=== PATIENT | male | born 1995 | race Caucasian/White ===

== ENCOUNTER 2019-07-13 11:28 | Emergency (ER) | payer OTHER ==
[~2019-07-13] VITALS: Ht 175.3 cm; Wt 68.0 kg
[2019-07-13 11:52] LABS: ABSOLUTE NEUTROPHILS 5.7 thou/uL (1.4-8.2); BASOPHILS 0.9 % (0.0-2.0); EOSINOPHILS 3.3 % (0.0-3.0); HEMATOCRIT 44.6 % (42.0-52.0); HEMOGLOBIN 15.8 gm/dL (14.0-18.0); LYMPHOCYTES 24.6 % (24.0-44.0); MCH 33.7 pg (26.0-34.0); MCHC 35.4 g/dL (28.0-37.0); MCV 95.3 fL (80.0-100.0); MONOCYTES 8.7 % (1.0-8.0); PLATELET COUNT 322 thou/uL (150-400); POLYS 62.5 % (36.0-66.0); RBC 4.67 mil/uL (4.50-6.00); RDW 14.5 % (10.5-14.5); WBC 9.1 thou/uL (4.0-11.0)
[2019-07-13 12:00] LABS: ANION GAP 14 mmol/L (7-16); BUN 14 mg/dL (7-18); CALCIUM 9.1 mg/dL (8.5-10.1); CHLORIDE 98 mmol/L (98-107); CO2 24 mmol/L (21-32); CREATININE 0.9 mg/dL (0.7-1.3); GLUCOSE 151 mg/dL (74-106); POTASSIUM 3.5 mmol/L (3.5-5.1); SODIUM 136 mmol/L (136-145)
[2019-07-13 12:04] LABS: SALICYLATE < 2.8 mg/dL (2.8-20.0)
[2019-07-13 12:04] LABS: URINE BILIRUBIN NEGATIVE (Negative); URINE BLOOD NEGATIVE (Negative); URINE CLARITY CLEAR; URINE COLOR YELLOW; URINE GLUCOSE-RANDOM* NEGATIVE (Negative); URINE KETONES NEGATIVE (Negative); URINE LEUKOCYTES-REFLEX NEGATIVE (Negative); URINE NITRITE-REFLEX NEGATIVE (Negative); URINE PROTEIN (DIPSTICK) TRACE (Negative); URINE SPECIFIC GRAVITY 1.025 (1.005-1.035); URINE UROBILINOGEN 0.2 E.U./dl (0.2-1.0)
[2019-07-13 12:11] LABS: AMP/METHAMP Negative (Negative); BARBITURATES Negative (Negative); BENZODIAZEPINES Negative (Negative); COCAINE Negative (Negative); METHADONE Negative (Negative); OPIATES Negative (Negative); PCP Negative (Negative)
[2019-07-13 15:10] VITALS: BP 125/82
[2019-07-14 19:07] LABS: SYPHILIS AB Negative (Negative)
== END 2019-07-13 15:10 | disposition home or self-care (01) ==
LOC: ER 11:28
PROVIDERS: Emergency Medicine
DX: R45.4 Irritability and anger (principal); F10.20 Alcohol dependence, uncomplicated; F17.210 Nicotine dependence, cigarettes, uncomplicated; Y90.4 Blood alcohol level of 80-99 mg/100 ml

== ENCOUNTER 2019-11-10 17:37 | Inpatient (IN) | payer OTHER ==
[~2019-11-10] VITALS: Ht 175.3 cm; Wt 65.3 kg
--- NOTE | ~2019-11-10 | EKG ---
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
[2019-11-10 17:40] VITALS: BP 130/72
[2019-11-10 18:30] LABS: ABSOLUTE NEUTROPHILS 15.9 thou/uL (1.4-8.2); BASOPHILS 0.1 % (0.0-2.0); HEMATOCRIT 45.7 % (42.0-52.0); HEMOGLOBIN 16.2 gm/dL (14.0-18.0); LYMPHOCYTES 5.8 % (24.0-44.0); MCH 32.7 pg (26.0-34.0); MCHC 35.4 g/dL (28.0-37.0); MCV 92.2 fL (80.0-100.0); MONOCYTES 7.8 % (1.0-8.0); PLATELET COUNT 171 thou/uL (150-400); POLYS 86.3 % (36.0-66.0); RBC 4.96 mil/uL (4.50-6.00); RDW 12.8 % (10.5-14.5); WBC 18.4 thou/uL (4.0-11.0)
[2019-11-10 18:47] LABS: ALBUMIN 4.4 g/dL (3.4-5.0); CALCIUM 9.5 mg/dL (8.5-10.1); CREATININE 1.3 mg/dL (0.7-1.3); TOTAL BILIRUBIN 1.1 mg/dL (<0.1-1.0)
[2019-11-10 18:49] LABS: SALICYLATE < 2.8 mg/dL (2.8-20.0); TROPONIN-I 0.34 ng/mL (<0.06)
[2019-11-10 18:50] LABS: POTASSIUM 2.6 mmol/L (3.5-5.1)
--- NOTE | 2019-11-10 20:15 | NUR ---
REPORT GIVEN TO SHY DAN AT 1900.
[2019-11-10 20:16] LABS: URINE CREATININE-RANDOM* 160.6 mg/dL
[2019-11-10 20:20] LABS: AMP/METHAMP Negative (Negative); BARBITURATES Negative (Negative); BENZODIAZEPINES Negative (Negative); COCAINE Negative (Negative); METHADONE Negative (Negative); OPIATES Negative (Negative); PCP Negative (Negative)
[2019-11-10 23:24] LABS: CALCIUM 8.6 mg/dL (8.5-10.1)
[2019-11-10 23:28] LABS: POTASSIUM 2.8 mmol/L (3.5-5.1)
[2019-11-10 23:30] VITALS: BP 125/72
[2019-11-10 23:45] VITALS: BP 122/70
[2019-11-11] VITALS (13 sets, daily range): BP systolic 102–160; BP diastolic 50–77
--- NOTE | 2019-11-11 03:32 | NUR ---
PT ARRIVED ON THE UNIT BEFORE MIDNIGHT, IN 4 POINT LEATHER RESTRAINTS, WITH SECURITY AND ER NURSE. ACUTELY CONFUSED, AND NOT RE-DIRECTABLE ALSO AGITATED AND RESTLESS, MAKING MULTIPLE ATTEMPTS TO GET OOB AND PULLING AT TELE MONITOR CORDS.OBTAINED ORDER FOR 3 POINT SOFT RESTRAINTS AND PLACED [place]NA PER ORDERS. IVF AND 1ST BAG OF KCL INFUSING AT THE TIME OF ADMISION.
[2019-11-11 05:29] LABS: HEMATOCRIT 40.6 % (42.0-52.0); MCV 94.3 fL (80.0-100.0); RBC 4.3 mil/uL (4.50-6.00); RDW 12.6 % (10.5-14.5); WBC 11.8 thou/uL (4.0-11.0)
[2019-11-11 05:40] LABS: HEMOGLOBIN 14.2 gm/dL (14.0-18.0)
[2019-11-11 06:00] LABS: CALCIUM 8.7 mg/dL (8.5-10.1); CREATININE 0.9 mg/dL (0.7-1.3); TROPONIN-I 0.18 ng/mL (<0.06)
[2019-11-11 06:02] LABS: POTASSIUM 2.8 mmol/L (3.5-5.1)
--- NOTE | 2019-11-11 08:00 | NUR ---
PT ALERT AND ORIENTED X4 THIS MORNING, ABLE TO CARRY ON A CONVERSATION, FOLLOWING COMMANDS. RESTRAINTS REMOVED, PT GIVEN WATER AND REGULAR DIET WERE ORDERED. PT STATING THAT HE NEEDS TO USE THE BATHROOM, INSTRUCTED PT THAT HE HAS A CATHETER IN PLACE AND MAY FEEL THE URGE TO URINATE, ADVISED PT THAT WHEN THE PHYSICIAN'S COME AROUND WOULD SPEAK WITH THEM ABOUT POSSIBLY REMOVING CATHETER.
--- NOTE | 2019-11-11 10:29 | NUR ---
PT TO GO TO ROOM 350, REPORT GIVEN TO MAGGIE BEGUM. LILIAN STOKES'D ALL BELONGINGS SENT WITH PT
--- NOTE | 2019-11-11 11:07 | NUR ---
PATIENT ARRIVED FROM ICU, VIA W/C, AND ALERT AND ORIENTED X4. DENIES ANY DISOCMFORT AND SAYS HE IS HUNGRY. ORIENTED TO THE FLOOR. ST ON THE MONITOR AND OTHER VSS. AND WILL CONTINUE WITH POC.
[2019-11-11 13:53] LABS: ALBUMIN 3.5 g/dL (3.4-5.0); CALCIUM 8.4 mg/dL (8.5-10.1); CREATININE 0.9 mg/dL (0.7-1.3); PHOSPHORUS 2.3 mg/dL (2.5-4.9)
[2019-11-11 13:55] LABS: POTASSIUM 2.9 mmol/L (3.5-5.1)
[2019-11-12] VITALS (7 sets, daily range): BP systolic 117–128; BP diastolic 65–89
--- NOTE | 2019-11-12 06:07 | NUR ---
WITH STAFF PRESENT, HE STATED HE NEED TO GO TO THE BATHROOM. HE WAS REDIRECTED TO USE THE URINAL. HE MOVED HIMSELF TO THE SIDE OF THE BED. THIS RN STEPPED OVER TO PULL THE CURTAIN CLOSED AND PT SUDDENLY STOOD UP FELL ON TO THE TOP OF THE DRESSOR DESPITE BEING TOLD TO "WAIT A SECOND AND I'LL PULL THE CURTAIN. HE DID SAY HE SLIGHTLY HIT THE LEFT SIDE OF HIS FACE, DENIED ANY OTHER PAIN. DID SPEAK WITH Jaret DOVE, ORDERS RECEIVED FOR TYLENOL AND Q4HR NEUROCHECKS. ATTEMPTED TO CALL HIS DESIGNATED PT REP BUT THERE WAS NO ANSWER AND NO WAY TO LEAVE A MESSAGE.
[2019-11-12 08:48] LABS: HEMATOCRIT 37.7 % (42.0-52.0); HEMOGLOBIN 12.7 gm/dL (14.0-18.0); MCH 32.9 pg (26.0-34.0); MCHC 33.7 g/dL (28.0-37.0); MCV 97.5 fL (80.0-100.0); RBC 3.87 mil/uL (4.50-6.00); RDW 12.4 % (10.5-14.5); WBC 7.4 thou/uL (4.0-11.0)
[2019-11-12 08:53] LABS: ALBUMIN 3.3 g/dL (3.4-5.0); CALCIUM 8.5 mg/dL (8.5-10.1); CREATININE 0.8 mg/dL (0.7-1.3); PHOSPHORUS 1.8 mg/dL (2.5-4.9); POTASSIUM 3.1 mmol/L (3.5-5.1)
--- NOTE | 2019-11-12 09:06 | HC ---
[facility] [place] [address] CONSULTATION Name: CESAR LUA Room #: 350-P [facility] IN ..#: [id number] Admission: 11/10/19 Attend Phys: Jamaal Russell MD Discharge: Date of : [birth year] Report #: [id number] THIS REPORT FOR: //name// CC: [facility] physician/PCP Jamaal Russell REASON FOR CONSULTATION: Hyponatremia. REASON FOR PRESENTATION: Mental status changes. HISTORY OF PRESENT ILLNESS: A 24-year-old with really no known previous medical problems. He presented yesterday after falling down after he smoked some weed. He also reported to chronic alcohol abuse. Laboratory values on presentation showed that the patient had significant hyponatremia. The patient was hallucinating. He was admitted to the Intensive Care Unit to further evaluate. Sodium had rectified to around 128. I was consulted to manage his sodium issues. The patient denies any prior sodium problems. He does not take any medications that might cause hyponatremia. He did, however, report significant water and alcohol drinking. ALLERGIES: None. PAST MEDICAL HISTORY: No known chronic medical problems FAMILY HISTORY: No known sodium issues in the family. MEDICATIONS: None. REVIEW OF SYSTEMS: GENERAL: Significant for lethargy and weakness. CARDIOVASCULAR: No chest pain or palpitation. PULMONARY: No cough or hemoptysis. GASTROINTESTINAL: No nausea or vomiting. GENITOURINARY: No frequency, no urgency. MUSCULOSKELETAL: First fall. NEUROLOGICAL: Hallucinating yesterday. SKIN: Abrasions and bruises over his head after the fall. PHYSICAL EXAMINATION: GENERAL: He is alert, oriented. VITAL SIGNS: Pulse rate is 105, blood pressure is 114/54. HEAD AND NECK: No jugular venous distention. CHEST: Decreased air entry bilaterally. No crackles. CARDIOVASCULAR: Regular with no rub detected. ABDOMEN: Soft, nontender, without hepatosplenomegaly. LOWER EXTREMITIES: No edema with intact peripheral pulses. [facility] [address] [place] [address] CONSULTATION Name: CESAR LUA Room #: 350-P [facility]#: [id number] Admission: 11/10/19 Attend Phys: Jamaal Russell MD Discharge: Date of : [birth year] Report #: [id number] LABORATORY DATA: Reviewed. Sodium is 128, potassium is 2.8. He had leukocytosis. White blood cell count on presentation was 18.4. Magnesium was 2.7. Facial bones CT, no fractures. Head CT, no acute abnormality. ASSESSMENT, IMPRESSION AND PLAN: 1. Acute hyponatremia, multifactorial related to alcohol abuse. 2. Rate of rise in the sodium will have to be slowed. I will stop his current IV fluid. 3. I will switch him to D5W. 4. Serum sodium levels. 5. Start oral diet. 6. Counseling about drug abuse. 7. We will continue to follow his sodium during the next 24 hours; however, this should rectify on its own. <ELECTRONICALLY SIGNED> By: Joyce Mayberry MD 11/12/19905 Joyce Mayberry MD /sandie
--- NOTE | 2019-11-12 18:36 | NUR ---
PROGRESSING TOWARDS POC GOALS. DC TO HOME NOW.
--- NOTE | 2019-11-13 10:13 | NUR ---
PT'S BELONGINGS RETURNED TO HIM AT THIS TIME FROM THE SECURE LOCKER IN THE ED. BAG VERIFIED VIA PT'S LABEL MATCHING THE PT.
== END 2019-11-12 19:06 | disposition home or self-care (01) | DRG 640 ==
LOC: ER 17:37 → EROBS 20:53 → ICU 20:53 → 3W 11-11 10:55
PROVIDERS: Hospitalist; Nurse Practitioner Family; Student in an Organized Health Care Education/Training Program; ADMIT Hospitalist
DX: E87.1 Hypo-osmolality and hyponatremia (principal); G93.41 Metabolic encephalopathy; E87.3 Alkalosis; F17.210 Nicotine dependence, cigarettes, uncomplicated; R41.0 Disorientation, unspecified; E87.6 Hypokalemia; F10.10 Alcohol abuse, uncomplicated; Y90.9 Presence of alcohol in blood, level not specified; Z71.51 Drug abuse counseling and surveillance of drug abuser
CPT/HCPCS: 10078; 10879